=== PATIENT | female | born 1985 | race Two or more races ===

== ENCOUNTER 2018-10-02 01:11 | Inpatient (IN) | payer OTHER ==
[2018-10-02] MEDS ORDERED: BUTORPHANOL TARTRATE 1 MG/ML VIAL IVPB PRN (06:16)
[2018-10-02 06:44] VITALS: BMI 25.9
[2018-10-02] MEDS: ELECTROLYTE-148 SOLN 1,000 ML IV SCH ×3 (06:45→12:32)
--- NOTE | 2018-10-02 07:03 | HP ---
Past Medical History - Admission Chief Complaint: Uterine contractions History of Present Illness: 32yo @ 40+wks here with uterine contractions. Patient presented earlier in the evening, comfortable with contractions, 3cm and discharged home. Now presenting with contractions q3 minutes, though still comfortable. No LOF/ VB. +FM Initially 4cm, swollen cervix on exam, ambulated x 2 hour and only progressed to 5cm; admitted uncomplicated PNC @ [address] 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: Alzheimer's, CVA, Dementia, Migraine, Multiple Sclerosis, Peripheral Neuropathy, Parkinson's, Seizure, Syncope, TIA, Vertigo, Other Cardiovascular: No: AFIB, Aneurysm, Aortic Insufficiency, Aortic Stenosis, CAD, CHF, Deep Vein Thrombosis, HTN, Hyperlipdemia, [place], Mitral Insufficiency, Mitral Stenosis, Murmur, Pulmonary Hypertension, Other Pulmonary: No: Asthma, Bronchitis, Cancer, COPD, O2 Dependent, Pneumonia, Previously Intubated, Pulmonary Embolus, Pulmonary Fibrosis, Sleep Apnea, Other Gastrointestinal: No: Ascites, Cancer, Constipation, Crohn's Disease, Diverticulitis, Diverticulosis, Esophageal Varices, Gastritis, GERD, GI Bleed, Hemorrhoids, Hiatal Hernia, Inflamatory Bowel Disease, Irritable Bowel Disease, Pancreatitis, Peptic Ulcer Disease, Ulcerative Colitis, Other Hepatobiliary: No: Cirrhosis, Cholelithiasis, Cholecystitis, Choledocholithiasis , Hepatitis A, Hepatitis B, Hepatitis C, Other Renal/: No: Renal Failure, Renal Inusuff, BPH, Cancer, Hematuria, Hemodialysis , Neurogenic Bladder, Renal Calculi, UTI, Other Reproductive: No: Ectopic , Endometriosis, Fibroids, PID, Polycystic Ovary Syndrome, Postmenopausal, Other ...: 1 ...Para: 0 ...Term: 0 ...: 0 ...Spon : 0 ...Induced : 0 ...Multiple Gestation: 0 ...EDC by Sono: 09/30/18 Heme/Onc: Yes: Anemia Infectious Disease: No: AIDS, C-Diff, Herpes Zoster, HIV, MRSA, STD's, Tuberculosis, VREF, Other Psych: No: Addictions, Anxiety, Bipolar, Depression, Panic, Psychosis, Schizophrenia, Other Musculoskeletal: No: Bursitis, Chronic low back pain, Hemiparesis, Hemiplegia, Osteoarthritis, Paraplegia, Other ENT: No: Allergic Rhinitis, Sinusitis, Other Endocrine: No: Western's Disease, [place]'s Disease, Diabetes Insipidus, Diabetes Mellitus, Hyperparathyroidism, Hyperthyroidism, Hypothyroidism, Osteopenia, SIADH, Other - Past Surgical History Past Surgical History: Yes: None Hx Myomectomy: No Hx Transabdominal Cerclage: No - Smoking History Smoking history: Never smoked - Alcohol/Substance Use Hx Alcohol Use: No - Social History Usual Living Arrangement: Yes: With Spouse, With Significant Other ADL: Independent History of Recent Travel: No Home Medications - Allergies Allergies/Adverse Reactions: Allergies Allergy/AdvReac Type Severity Reaction Status Date / Time No Known Allergies Allergy Verified 10/01/18 19:54 - Home Medications Home Medications: Ambulatory Orders Vitamins (Sjr) - 1 tab PO DAILY 09/30/18 Physical Exam - Maternity Vital Signs: Vital Signs Temperature 98.5 F 10/02/18 01:20 Pulse Rate 94 H 10/02/18 01:20 Respiratory Rate 20 10/02/18 01:20 Blood Pressure 123/84 10/02/18 01:20 O2 Sat by Pulse Oximetry (%) Constitutional: Yes: Well Nourished, No Distress, Calm Eyes: Yes: WNL, Conjunctiva Clear, EOM Intact HENT: Yes: WNL, Atraumatic, Normocephalic Neck: Yes: WNL, Supple, Trachea Midline Cardiovascular: Yes: WNL, Regular Rate and Rhythm Breast(s): Yes: WNL - Abdominal Exam/OB Number of Fetuses: Single Presentation: Vertex Contractions: Yes Regularity: Irregular Intensity: Mild/Mod Monitor Mode: External Heart Rate Location: [facility], [facility] Category: I Accelerations: Non-Uniform Decelerations: None - Vaginal Exam/OB Vaginal Bleediing: No Speculum Exam: No Dilatation (cm): 5 Effacement (%): 100 Amniotic Membrane Status: Intact Presentation: Vertex/Position - Physical Exam Edema: No Assessment/Plan 32yo @ 40+wks here in labor Admit to L&D NPO, IVFs Stadol/epidural prn Cervix noted to be swollen on exam Has made very slow transition into active labor, AROM/pitocin prn Neida Gallegos MD
[2018-10-02] MEDS ORDERED: FENTANYL/BUPIVACAINE/NS/PF - PCEA - 50 ML DISP.SYRIN EP ONE ×3 (07:20→17:23)
[2018-10-02 07:34] LABS: BASO % 0.7 % (0-2.0); EOS % 0.2 % (0-4.5); HEMATOCRIT 38.3 % (32.4-45.2); HEMOGLOBIN 12.9 GM/dL (10.7-15.3); MCH 31.7 pg (25.7-33.7); MCHC 33.6 g/dl (32.0-36.0); MEAN CELL VOLUME 94.2 fl (80-96); MEAN PLT VOLUME 10.2 fl (7.5-11.1); MONO % 5.5 % (3.8-10.2); NEUT % 82.6 % (42.8-82.8); PLATELET COUNT 232 K/MM3 (134-434); RBC 4.07 M/mm3 (3.60-5.2); RDW 14.7 % (11.6-15.6); WHITE BLOOD COUNT 21.1 K/mm3 (4.0-10.0)
[2018-10-02] MEDS: FENTANYL/BUPIVACAINE/NS/PF - PCEA - 50 ML DISP.SYRIN EP SCH ×3 (07:45→17:27)
[2018-10-02 07:51] LABS: BLOOD UREA NITROGEN 6.7 mg/dL (7-18); CALCIUM 9.6 mg/dL (8.5-10.1); CREATININE 0.7 mg/dL (0.55-1.3)
[2018-10-02 07:58] LABS: INR 0.91 (0.83-1.09); PROTHROMBIN TIME (PATIENT) 10.7 SEC (9.7-13.0)
[2018-10-02] MEDS ORDERED: NALOXONE HCL 0.4 MG/ML VIAL IVPUSH PRN (09:12)
[2018-10-02 11:29] LABS: ANISOCYTOSIS 1+; MACROCYTOSIS 1+; OVALOCYTE 1+; PLATELET ESTIMATE NORMAL; TOXIC GRANULATION 1+
--- NOTE | 2018-10-02 15:24 | PN ---
Progress Note (short form) - Note Progress Note: 32 yo , @ 40 weeks gestation, EDC 09/30/18, admitted for labor pain. She's seen and evaluated; she's comfortable. Status post epidural anesthesia. FHR : Reassring [place] : + irregular contractions. VE : 8-9 / 100 / 0 SROM A/P : Active labor Anticipate
[2018-10-02] MEDS ORDERED: OXYTOCIN 30 UNITS in 0.9% NS 30 UNIT/500 ML INFUS.BAG IVPB SCH (19:00)
[2018-10-02] MEDS ORDERED: OXYTOCIN 20 UNITS in 0.9% NS 20 UNIT/1,000 ML INFUS.BAG IV ONE ×2 (19:29→21:25)
[2018-10-02] MEDS ORDERED: LIDOCAINE HCL 1% PRESERVATIVE FREE - 30ML VIAL ONE (19:30)
[2018-10-02] MEDS ORDERED: OXYTOCIN 30 UNITS in 0.9% NS 30 UNIT/500 ML INFUS.BAG IVPB ONE (19:55)
[2018-10-02] MEDS ORDERED: CITRIC ACID/SODIUM CITRATE 30 ML UNIT-DOSE CUP PO ONE (20:56)
--- NOTE | 2018-10-02 20:56 | PN ---
Progress Note (short form) - Note Progress Note: 32 yo , @ 40 weeks gestation, EDC 09/30/18, admitted for labor pain. She's been laboring the whole day, she progress to 9cm but head failed to descent despite Pitocin augmentation. FHR : Reassuring [place] : regular contractions VE : 9/100 / 0 SROM A/P : Arrest of descent Pre op for primary Consent signed Anesthesia to see patient
[2018-10-02] MEDS ORDERED: LIDO 2%/EPI 1:200000 PRESRVFRE (20 ML SDVIAL) ONE (21:25)
[2018-10-02] MEDS ORDERED: ceFAZolin SODIUM 1 GM VIAL ONE (21:37)
[2018-10-02] MEDS ORDERED: METOPROLOL TARTRATE 5 MG/5 ML VIAL ONE (22:07)
[2018-10-02] MEDS ORDERED: ACETAMINOPHEN INJECTION 100 ML IVPB ONE (22:40)
[2018-10-02] MEDS ORDERED: ONDANSETRON 4 MG/2 ML VIAL IVPUSH PRN (22:42)
[2018-10-02] MEDS ORDERED: ACETAMINOPHEN 1000 MG/100 ML VIAL (NON FORMULARY) IVPB ONE (22:50)
[2018-10-02] MEDS ORDERED: IBUPROFEN 800 MG/8 ML IJ IVPB PRN (23:17)
[2018-10-02] MEDS ORDERED: METHYLERGONOVINE MALEATE 0.2 MG/1 ML AMP IM PRN (23:17)
--- NOTE | 2018-10-02 23:20 | OP ---
Operative Note - Note: Operative Date: 10/02/18 Pre-Operative Diagnosis: 40 weeks gestation / Arrest of descent Operation: Primary Findings: Large baby boy in cephallic presentation Post-Operative Diagnosis: Same as Pre-op Surgeon: Elizabeth Merritt [facility] Justice: Danny Westbrook Anesthesia: Epidural Specimens Removed: Placenta Estimated Blood Loss (mls): 600 Operative Report Dictated: Yes
[2018-10-02] MEDS ORDERED: OXYTOCIN 20 UNITS in 0.9% NS 20 UNIT/1,000 ML INFUS.BAG IV SCH (23:30)
--- NOTE | 2018-10-03 06:01 | OP ---
DATE OF OPERATION: 10/02/2018 PREOPERATIVE DIAGNOSIS: A 40-week gestation with arrest of descent. Procedure : Low Transverse SURGEON: Elizabeth Merritt MD LITHOGRAPHY CONTACT WORKER: DEWAYNE Pepe ANESTHESIA: Epidural. COMPLICATIONS: None. ESTIMATED BLOOD LOSS: 600 mL. DESCRIPTION OF PROCEDURE: Patient was taken to the operating room, where epidural anesthesia was found to be adequate. Patient was then prepped and draped in proper sterile fashion. A Pfannenstiel skin incision was made and carried down through the underlying layer of fascia. The fascia was incised in the midline and extended laterally. The inferior aspect of the fascial incision was then grasped with Gi clamps, elevated, and the rectus muscle dissected off bluntly. Attention was then turned to the superior aspect of the fascial incision, which in a similar fashion was then grasped with the Gi clamp, elevated, and the rectus muscle dissected off bluntly. The rectus muscle was then in the midline. The peritoneum was identified and entered sharply with the Metzenbaum scissors. The peritoneal incision was extended superiorly and inferiorly with good visualization of the bladder. Then , the vesicouterine peritoneum was then grasped with a pickup and entered sharply with the Metzenbaum scissors. This incision was extended laterally, and a bladder flap created digitally. The bladder blade was inserted. The lower uterine segment was incised using a 10-blade. This incision was extended laterally, and the head delivered atraumatically. Nose and mouth were suctioned, and the cord clamped, and cut. The infant was handed to the awaiting signal person. Placenta was removed manually. The uterus exteriorized and cleared of all clots and debris. The uterine incision was then repaired using 0 Biosyn in a running locked fashion. The 2nd layer of the same suture was used as a means to provide excellent hemostasis. The pelvis was then completely irrigated. Then, the uterus was returned to the abdomen. The peritoneum was closed using 2-0 Biosyn. Then, the fascia was reapproximated using 0 Vicryl in a running fashion. The skin was closed with elizabeth. Patient tolerated the procedure well. Patient was then taken to PACU in stable condition. PATHOLOGY: Placenta. Wallace PRINCE/[id number] MTDD
[2018-10-03 07:49] LABS: BASO % 0.1 % (0-2.0); EOS % 0.1 % (0-4.5); HEMATOCRIT 30.7 % (32.4-45.2); HEMOGLOBIN 10.7 GM/dL (10.7-15.3); LYMPH % 11.8 % (8-40); MCH 32.2 pg (25.7-33.7); MCHC 34.9 g/dl (32.0-36.0); MEAN CELL VOLUME 92.4 fl (80-96); PLATELET COUNT 191 K/MM3 (134-434); RBC 3.32 M/mm3 (3.60-5.2); RDW 14.8 % (11.6-15.6); WHITE BLOOD COUNT 14.9 K/mm3 (4.0-10.0)
[2018-10-03] MEDS: ACETAMINOPHEN 325 MG TABLET (FP) PO PRN ×2 (08:17→18:12)
--- NOTE | 2018-10-03 08:28 | PN ---
Post Progress Note - Subjective Subjective: levine in place, lochia decreased, breast feeding, no N/V Post Day: 1 Type of Delivery: Primary C/S Vital Signs: Vital Signs Temperature 98.8 F 10/03/18 08:16 Pulse Rate 85 10/03/18 08:16 Respiratory Rate 20 10/03/18 08:16 Blood Pressure 122/75 10/03/18 08:16 O2 Sat by Pulse Oximetry (%) 99 10/02/18 23:00 Breast Exam: Yes: Other (deferred) Uterus: Yes: Fundus Firm (moderate tenderness) Incision: Yes: Sravani intact Abdomen/GI: Yes: Tender (warm) Lochia, amount: Small Extremities: Yes: Calves non-tender - Labs Labs: CBC WBC 14.9 K/mm3 (4.0-10.0) H 10/03/18 07:06 RBC 3.32 M/mm3 (3.60-5.2) L 10/03/18 07:06 Hgb 10.7 GM/dL (10.7-15.3) 10/03/18 07:06 Hct 30.7 % (32.4-45.2) L D 10/03/18 07:06 MCV 92.4 fl (80-96) 10/03/18 07:06 MCH 32.2 pg (25.7-33.7) 10/03/18 07:06 MCHC 34.9 g/dl (32.0-36.0) 10/03/18 07:06 RDW 14.8 % (11.6-15.6) 10/03/18 07:06 Plt Count 191 K/MM3 (134-434) 10/03/18 07:06 MPV 9.0 fl (7.5-11.1) D 10/03/18 07:06 Absolute Neuts (auto) 12.7 K/mm3 (1.5-8.0) H 10/03/18 07:06 Neutrophils % 85.0 % (42.8-82.8) H 10/03/18 07:06 Neutrophils % (Manual) 75.3 % (42.8-82.8) 10/02/18 06:00 Band Neutrophils % 8.3 % 10/02/18 06:00 Lymphocytes % 11.8 % (8-40) 10/03/18 07:06 Lymphocytes % (Manual) 7.2 % (8-40) L 10/02/18 06:00 Monocytes % 3.0 % (3.8-10.2) L 10/03/18 07:06 Monocytes % (Manual) 6 % (3.8-10.2) 10/02/18 06:00 Eosinophils % 0.1 % (0-4.5) 10/03/18 07:06 Eosinophils % (Manual) 1.0 % (0-4.5) 10/02/18 06:00 Basophils % 0.1 % (0-2.0) 10/03/18 07:06 Basophils % (Manual) 1.0 % (0-2.0) 10/02/18 06:00 Myelocytes % (Man) 0 % (0-2) 10/02/18 06:00 Promyelocytes % (Man) 0 % (0-2) 10/02/18 06:00 Blast Cells % (Manual) 0 % (0-0) 10/02/18 06:00 Nucleated RBC % 0 % (0-0) 10/03/18 07:06 Metamyelocytes 0 % (0-2) 10/02/18 06:00 Hypochromia 0 10/02/18 06:00 Toxic Granulation 1+ 10/02/18 06:00 Platelet Estimate Normal 10/02/18 06:00 Polychromasia 0 10/02/18 06:00 Poikilocytosis 0 10/02/18 06:00 Anisocytosis 1+ 10/02/18 06:00 Microcytosis 0 10/02/18 06:00 Macrocytosis 1+ 10/02/18 06:00 Ovalocytes 1+ 10/02/18 06:00 Assessment/Plan POD # 1, low grade fever, suspected endomyometritis -Continue PP/post-op care -tylenol -unasyn for 24hrs afebrile
[2018-10-03] MEDS: AMPICILLIN NA/SULBACTAM NA 3 GM in SODIUM CHLORIDE 100 ML IVPB SCH ×2 (09:17→18:12)
[2018-10-03] MEDS: FERROUS SO4 325 MG TABLET (FP) PO SCH ×2 (09:53→21:36)
[2018-10-03] MEDS: PRENATAL VITAMINS W/ FOLIC ACID TABLET (FP) PO SCH (09:53)
--- NOTE | 2018-10-03 11:33 | PN ---
Progress Note (short form) - Note Progress Note: Anesthesia postop note 32 y/o F s/p epidural anesthesia /duramorph for section POD#1, vss, aaox3, sensory motor intact distally, pain well controlled No anesthesia complications.
[2018-10-03 14:04] LABS: ANISOCYTOSIS 0; MACROCYTOSIS 0; PLATELET ESTIMATE NORMAL
[2018-10-03 14:12] LABS: TOXIC GRANULATION 1+
[2018-10-03] MEDS ORDERED: BISACODYL 10 MG SUPP.RECT RC PRN (23:17)
[2018-10-04] MEDS: AMPICILLIN NA/SULBACTAM NA 3 GM in SODIUM CHLORIDE 100 ML IVPB SCH (01:52)
[2018-10-04] MEDS: SIMETHICONE 80 MG TAB.CHEW (FP) PO PRN ×2 (05:59→20:50)
[2018-10-04] MEDS: IBUPROFEN 600 MG TABLET (FP) PO PRN ×2 (05:59→20:50)
[2018-10-04] MEDS: ACETAMINOPHEN 325 MG TABLET (FP) PO PRN ×2 (05:59→20:50)
--- NOTE | 2018-10-04 08:07 | PN ---
Post Progress Note - Subjective Subjective: pt c/o pain scale 7/10 lochia foul smelling voiding without difficulty Post Day: 2 Type of Delivery: Primary C/S Vital Signs: Vital Signs Temperature 99.8 F H 10/04/18 05:58 Pulse Rate 88 10/03/18 21:44 Respiratory Rate 20 10/03/18 21:44 Blood Pressure 121/67 10/03/18 21:44 O2 Sat by Pulse Oximetry (%) 99 10/02/18 23:00 Breast Exam: Yes: Soft, Other (BF ). No: Engorged Uterus: Yes: Fundus Firm, Fundus below umbilicus, Other (no bilateral cva tenderness). No: Non-tender (tender uterus ) Incision: No: Sravani intact, Redness, Oozing Abdomen/GI: Yes: Abdomen soft, Tender, Passing flatus (bm not done ), Tolerating PO (diet). No: Abdominal Distention Lochia: Yes: Rubra Lochia, amount: Moderate Extremities: Yes: Calves non-tender Perineum: Yes: Intact Activity: Ambulating - Labs Labs: CBC WBC 14.9 K/mm3 (4.0-10.0) H 10/03/18 07:06 RBC 3.32 M/mm3 (3.60-5.2) L 10/03/18 07:06 Hgb 10.7 GM/dL (10.7-15.3) 10/03/18 07:06 Hct 30.7 % (32.4-45.2) L D 10/03/18 07:06 MCV 92.4 fl (80-96) 10/03/18 07:06 MCH 32.2 pg (25.7-33.7) 10/03/18 07:06 MCHC 34.9 g/dl (32.0-36.0) 10/03/18 07:06 RDW 14.8 % (11.6-15.6) 10/03/18 07:06 Plt Count 191 K/MM3 (134-434) 10/03/18 07:06 MPV 9.0 fl (7.5-11.1) D 10/03/18 07:06 Absolute Neuts (auto) 12.7 K/mm3 (1.5-8.0) H 10/03/18 07:06 Neutrophils % 85.0 % (42.8-82.8) H 10/03/18 07:06 Neutrophils % (Manual) 70.7 % (42.8-82.8) 10/03/18 07:06 Band Neutrophils % 17.2 % 10/03/18 07:06 Lymphocytes % 11.8 % (8-40) 10/03/18 07:06 Lymphocytes % (Manual) 9.1 % (8-40) D 10/03/18 07:06 Monocytes % 3.0 % (3.8-10.2) L 10/03/18 07:06 Monocytes % (Manual) 0 % (3.8-10.2) L D 10/03/18 07:06 Eosinophils % 0.1 % (0-4.5) 10/03/18 07:06 Eosinophils % (Manual) 0.0 % (0-4.5) D 10/03/18 07:06 Basophils % 0.1 % (0-2.0) 10/03/18 07:06 Basophils % (Manual) 0.0 % (0-2.0) 10/03/18 07:06 Myelocytes % (Man) 0 % (0-2) 10/03/18 07:06 Promyelocytes % (Man) 0 % (0-2) 10/03/18 07:06 Blast Cells % (Manual) 0 % (0-0) 10/03/18 07:06 Nucleated RBC % 0 % (0-0) 10/03/18 07:06 Metamyelocytes 0 % (0-2) 10/03/18 07:06 Hypochromia 0 10/03/18 07:06 Toxic Granulation 1+ 10/03/18 07:06 Platelet Estimate Normal 10/03/18 07:06 Polychromasia 0 10/03/18 07:06 Poikilocytosis 0 10/03/18 07:06 Anisocytosis 0 10/03/18 07:06 Microcytosis 0 10/03/18 07:06 Macrocytosis 0 10/03/18 07:06 Ovalocytes 1+ 10/02/18 06:00 Other Findings, Remarks: RS cta urine out put 6450 ml Problem List - Problems (1) examination following delivery Code(s): Z39.2 - ENCOUNTER FOR ROUTINE FOLLOW-UP (2) Acute endomyometritis Code(s): N71.0 - ACUTE INFLAMMATORY DISEASE OF UTERUS Assessment/Plan po c/s day #2 s/p faillure of descent post full dilatation pt still has uterine tenderness, lochia woth odor Plan ct antibiotics, change to Po Augmentin encourage deep breathing, ambulation, po fluids
[2018-10-04] MEDS: PRENATAL VITAMINS W/ FOLIC ACID TABLET (FP) PO SCH (09:25)
[2018-10-04] MEDS: FERROUS SO4 325 MG TABLET (FP) PO SCH ×2 (09:25→21:18)
[2018-10-04] MEDS ORDERED: AMPICILLIN NA/SULBACTAM NA 3 GM in SODIUM CHLORIDE 100 ML IVPB SCH (10:00)
[2018-10-04] MEDS: AMOX TR/POT CLAV 875MG/125MG TABLETS (FP) PO SCH ×2 (10:27→17:33)
--- NOTE | 2018-10-05 06:58 | PN ---
Post Progress Note - Subjective Subjective: Pain controlled. No fevers/chills Post Day: 3 Type of Delivery: Primary C/S Vital Signs: Vital Signs Temperature 99.0 F 10/05/18 06:00 Pulse Rate 72 10/04/18 21:50 Respiratory Rate 18 10/04/18 21:50 Blood Pressure 138/80 10/04/18 21:50 O2 Sat by Pulse Oximetry (%) 99 10/02/18 23:00 Uterus: Yes: Fundus below umbilicus Incision: Yes: Dressing dry and intact Abdomen/GI: Yes: Abdomen soft, Passing flatus, Tolerating PO Lochia: Yes: Rubra Perineum: Yes: Intact Activity: Ambulating - Labs Labs: CBC WBC 14.9 K/mm3 (4.0-10.0) H 10/03/18 07:06 RBC 3.32 M/mm3 (3.60-5.2) L 10/03/18 07:06 Hgb 10.7 GM/dL (10.7-15.3) 10/03/18 07:06 Hct 30.7 % (32.4-45.2) L D 10/03/18 07:06 MCV 92.4 fl (80-96) 10/03/18 07:06 MCH 32.2 pg (25.7-33.7) 10/03/18 07:06 MCHC 34.9 g/dl (32.0-36.0) 10/03/18 07:06 RDW 14.8 % (11.6-15.6) 10/03/18 07:06 Plt Count 191 K/MM3 (134-434) 10/03/18 07:06 MPV 9.0 fl (7.5-11.1) D 10/03/18 07:06 Absolute Neuts (auto) 12.7 K/mm3 (1.5-8.0) H 10/03/18 07:06 Neutrophils % 85.0 % (42.8-82.8) H 10/03/18 07:06 Neutrophils % (Manual) 70.7 % (42.8-82.8) 10/03/18 07:06 Band Neutrophils % 17.2 % 10/03/18 07:06 Lymphocytes % 11.8 % (8-40) 10/03/18 07:06 Lymphocytes % (Manual) 9.1 % (8-40) D 10/03/18 07:06 Monocytes % 3.0 % (3.8-10.2) L 10/03/18 07:06 Monocytes % (Manual) 0 % (3.8-10.2) L D 10/03/18 07:06 Eosinophils % 0.1 % (0-4.5) 10/03/18 07:06 Eosinophils % (Manual) 0.0 % (0-4.5) D 10/03/18 07:06 Basophils % 0.1 % (0-2.0) 10/03/18 07:06 Basophils % (Manual) 0.0 % (0-2.0) 10/03/18 07:06 Myelocytes % (Man) 0 % (0-2) 10/03/18 07:06 Promyelocytes % (Man) 0 % (0-2) 10/03/18 07:06 Blast Cells % (Manual) 0 % (0-0) 10/03/18 07:06 Nucleated RBC % 0 % (0-0) 10/03/18 07:06 Metamyelocytes 0 % (0-2) 10/03/18 07:06 Hypochromia 0 10/03/18 07:06 Toxic Granulation 1+ 10/03/18 07:06 Platelet Estimate Normal 10/03/18 07:06 Polychromasia 0 10/03/18 07:06 Poikilocytosis 0 10/03/18 07:06 Anisocytosis 0 10/03/18 07:06 Microcytosis 0 10/03/18 07:06 Macrocytosis 0 10/03/18 07:06 Ovalocytes 1+ 10/02/18 06:00 Assessment/Plan 32yo s/p PLTCS, POD#3 Routine PP care F/U AM labs- WBC 14 with 17% bandemia on 10/04 labs, resolved on 10/05 CBC Cont Augmentin for endometritis D/C to home today with follow up in one week Neida Gallegos MD
[2018-10-05] MEDS: AMOX TR/POT CLAV 875MG/125MG TABLETS (FP) PO SCH ×2 (09:03→09:15)
[2018-10-05] MEDS: PRENATAL VITAMINS W/ FOLIC ACID TABLET (FP) PO SCH (09:22)
[2018-10-05] MEDS: FERROUS SO4 325 MG TABLET (FP) PO SCH (09:22)
[2018-10-05 09:35] LABS: BASO % 0.5 % (0-2.0); EOS % 1.3 % (0-4.5); HEMATOCRIT 27.9 % (32.4-45.2); HEMOGLOBIN 9.4 GM/dL (10.7-15.3); MCH 31.3 pg (25.7-33.7); MCHC 33.8 g/dl (32.0-36.0); MEAN CELL VOLUME 92.7 fl (80-96); MEAN PLT VOLUME 8.6 fl (7.5-11.1); MONO % 3.2 % (3.8-10.2); PLATELET COUNT 238 K/MM3 (134-434); RBC 3.01 M/mm3 (3.60-5.2); RDW 14.7 % (11.6-15.6); WHITE BLOOD COUNT 14.4 K/mm3 (4.0-10.0)
[2018-10-05 11:24] LABS: ANISOCYTOSIS 0; MACROCYTOSIS 1+; OVALOCYTE 1+; PLATELET ESTIMATE NORMAL
[2018-10-05 13:48] VITALS: BP 140/75; PULSE 79; TEMP 98.6
--- NOTE | 2018-10-06 20:16 | PATH ---
Surgical Pathology Report Patient Name: GUTIERREZ BERNABE [facility]. Rec. #: [id number] /Age/Gender: 1985 (Age: 32) / F Account: [id number] Location: [facility] OBS/TALENT ACQUISITION COORDINATOR Taken: 10/02/2018 Received: 10/03/2018 Reported: 10/06/2018 Physicians: Elizabeth Merritt M.D. Specimen(s) Received PLACENTA Clinical History 32-year-old , 40.2 weeks' gestation, history of HPV Final Diagnosis PLACENTA: THIRD TRIMESTER PLACENTA. TRIVASCULAR CORD. MEMBRANES WITH NO DIAGNOSTIC ABNORMALITIES. Electronically Signed Maritza Porter M.D. Gross Description The specimen is received fresh labeled placenta and is a 540 gram, 18.0 x 16.5 x 3.0 cm. placenta with attached membranes and umbilical cord. The attached membranes are samuels, translucent with focal opacities and insert marginally. The umbilical cord measures 25 cm. in length and averages 1.3 cm. in diameter. The cord inserts eccentrically, 3 cm. to the nearest margin. No true knots or strictures are identified. Cut surface of the umbilical cord reveals 3 vessels. The surface is villa-blue with minimal fibrin deposition and appropriate caliber vessels. The maternal surface is red-brown with focal defects. Sectioning reveals red-brown, spongy parenchyma. No lesions are identified. Watch [place] [employer] sections are submitted in three cassettes as follows: 1- membrane rolls and umbilical cord; 2-3- full thickness sections of placenta. 10/05/2018 [facility]10/05/2018
== END 2018-10-05 16:10 | disposition home or self-care (01) | DRG 540 ==
LOC: JDEL 01:11 → JLDR 05:05 → J3W 10-03 02:15
PROVIDERS: ADMIT Obstetrics & Gynecology; ATTEND Obstetrics & Gynecology
PROC: 10D00Z1 Extraction of Products of Conception, Low, Open Approach (ICD-10-PCS; principal; 2018-10-02)
DX: O48.0 Post-term pregnancy (principal); O62.1 Secondary uterine inertia; O90.89 Other complications of the puerperium, not elsewhere classified; N71.0 Acute inflammatory disease of uterus; Z3A.40 40 weeks gestation of pregnancy; Z37.0 Single live birth
CPT/HCPCS: 36415; 36600; 59025; 80048; 82803; 85025; 85610; 85730; 86593; 86850; 86900; 86901; 88307-TC; J0131

== ENCOUNTER 2018-10-06 11:02 | Emergency (ER) | payer OTHER ==
[2018-10-06 11:19] VITALS: BP 129/82; PULSE 67; TEMP 99.6; BMI 25.9
[2018-10-06] MEDS ORDERED: DEXAMETHASONE LIQUID 0.5 MG/5 ML 240 ML BULK BOTTLE PO ONE (12:39)
[2018-10-06] MEDS ORDERED: ACETAMINOPHEN 500 MG TABLET (FP) PO ONE (12:39)
[2018-10-06] MEDS ORDERED: diphenhydrAMINE HCL 25 MG CAPSULE (FP) PO ONE ×2 (12:40→12:43)
[2018-10-06] MEDS ORDERED: ACETAMINOPHEN 325 MG TABLET (FP) ONE (12:43)
[2018-10-06] MEDS ORDERED: DEXAMETHASONE SOD PHOSPHATE 10 MG/1 ML VIAL ONE (12:43)
--- NOTE | 2018-10-06 12:44 | PDOC ---
History of Present Illness - General Chief Complaint: Rash Stated Complaint: FEVER/RASH Time Seen by Provider: 10/06/18 12:33 - History of Present Illness Initial Comments: 10/06/18 12:41 32-year-old female 1 week presents for evaluation of rash times one day Past History - Past Medical History Allergies/Adverse Reactions: Allergies Allergy/AdvReac Type Severity Reaction Status Date / Time No Known Allergies Allergy Verified 10/06/18 11:14 Home Medications: Ambulatory Orders Vitamins (Sjr) - 1 tab PO DAILY 09/30/18 Ibuprofen 600 mg PO Q6H PRN #30 tablet 10/04/18 Amoxicillin/Potassium Clav [Augmentin 500-125 Tablet] 1 each PO BID #20 tablet 10/05/18 Asthma: No Cancer: No Cardiac Disorders: No CVA: No COPD: No Diabetes: No HTN: No Seizures: No Thyroid Disease: No - Immunization History Immunization Up to Date: Yes - Suicide/Smoking/Psychosocial Hx Smoking History: Never smoked Information on smoking cessation initiated: No Hx Alcohol Use: No Drug/Substance Use Hx: No Hx Substance Use Treatment: No Review of Systems - Review of Systems Constitutional: Yes: Fever Integumentary: Yes: Pruritus, Rash *Physical Exam - Vital Signs Last Vital Signs Temp Pulse Resp BP Pulse Ox 99.6 F 67 17 129/82 100 10/06/18 11:15 10/06/18 11:15 10/06/18 11:15 10/06/18 11:15 10/06/18 11:15 - Physical Exam Comments: 10/06/18 12:42 HEAD: NC/AT EYES: Conjuntiva clear Ears: Canals and TM's normal NOSE: No d/c THROAT: Moist mucous membrances, oral pharanx clear, uvula midline NECK: Supple without adenopathy CARDIAC: S1 S2 LUNGS: CTA Full and Equal breath sounds ABDOMEN: Soft NT ND MS: Full ROM in all joints without edema NEUROLOGIC: No gross sensory or motor deficits, NVID SKIN: Normal color and temperature no lesions there is a mild erythemic raised wheals on the abdomen left hand left flank anterior aspect of the right thigh no indication of secondary infection Medical Decision Making - Medical Decision Making 10/06/18 12:43 ALLERGIC Reaction of unknown etiology. Advised patient to hold off on breast- feeding we'll treat with Decadron Benadryl and Tylenol and have patient follow up with PCP. *DC/Admit/Observation/Transfer Diagnosis at time of Disposition: Allergic reaction - Discharge Dispostion Disposition: HOME Condition at time of disposition: Stable Decision to Admit order: No - Referrals Referrals: Evon Gallegos MD [Primary Care Provider] - - Patient Instructions Printed Discharge Instructions: DI for General Allergic Reactions Additional Instructions: Continue Benadryl at home as directed. Return to the emergency room for worsening symptoms and follow-up with your primary care physician as well as her job counselor in 1-2 days without fail. Avoid breast-feeding until cleared by your job counselor. - Post Discharge Activity
== END 2018-10-06 13:08 | disposition home or self-care (01) ==
LOC: JERFT 11:02 → JER 11:02 → JERFT 13:08
DX: T78.40XA Allergy, unspecified, initial encounter (principal)
CPT/HCPCS: 99281-25

== ENCOUNTER 2021-10-18 12:15 | Emergency (ER) | payer OTHER ==
[2021-10-18 12:25] VITALS: BP 124/78; PULSE 91; RESP 18; TEMP 98.2; BMI 27.4
== END 2021-10-18 13:13 | disposition home or self-care (01) ==
LOC: JERFT 12:15 → JER 12:15 → JERFT 13:13
DX: H11.33 Conjunctival hemorrhage, bilateral (principal)
CPT/HCPCS: 99281-25

== ENCOUNTER 2021-11-04 21:47 | Emergency (ER) | payer OTHER ==
[2021-11-04 22:01] VITALS: BP 105/74; PULSE 82; RESP 19; TEMP 98.4; BMI 23.2
[2021-11-04 23:45] LABS: EPI CELLS 5 /uL (0-25.1); HYALINE CASTS 1 /uL (0-3.1); PH,URINE 5.5 (5.0-8.0); URINE APPEARANCE CLEAR; URINE BACTERIA 50 /uL (0-1359); URINE BILIRUBIN NEGATIVE (NEGATIVE); URINE COLOR YELLOW; URINE GLUCOSE (UA) NEGATIVE (NEGATIVE); URINE KETONE NEGATIVE (NEGATIVE); URINE LEUK ESTERASE TRACE (NEGATIVE); URINE NITRITE NEGATIVE (NEGATIVE); URINE PROTEIN NEGATIVE (NEGATIVE); URINE RBC 2 /uL (0-23.9); URINE UROBILINOGEN 0.2 mg/dL (0.2-1.0); URINE WBC 2 /uL (0-25.8)
[2021-11-05 00:24] LABS: HCG,QUALITATIVE URINE Negative
[2021-11-05] MEDS ORDERED: KETOROLAC TROMETHAMINE 30 MG/1 ML VIAL IM ONE (00:35)
[2021-11-05] MEDS ORDERED: KETOROLAC TROMETHAMINE 30 MG/1 ML VIAL ONE (00:42)
== END 2021-11-05 00:55 | disposition home or self-care (01) ==
LOC: JER 21:47
PROC: 3E0234Z Introduction of Serum, Toxoid and Vaccine into Muscle, Percutaneous Approach (ICD-10-PCS; principal; 2021-11-04)
DX: N30.01 Acute cystitis with hematuria (principal)
CPT/HCPCS: 76830-TC; 81003; 84703; 87086; 99284-25